=== PATIENT | female | born 1940 | race Caucasian/White ===

== ENCOUNTER 2017-07-21 18:56 | Emergency (ER) | END 2017-07-21 20:04 | disposition home or self-care (01) ==

== ENCOUNTER 2017-07-21 23:25 | Emergency (ER) | END 2017-07-22 01:06 | disposition left against medical advice (07) ==

== ENCOUNTER 2017-08-02 13:59 | Emergency (ER) | END 2017-08-02 14:55 | disposition home or self-care (01) ==

== ENCOUNTER 2017-08-05 13:17 | Emergency (ER) | END 2017-08-06 00:48 | disposition home or self-care (01) ==

== ENCOUNTER 2017-08-12 06:18 | Emergency (ER) | END 2017-08-12 08:11 | disposition home or self-care (01) ==